=== PATIENT | female | born 1945 | race Caucasian/White ===

== ENCOUNTER 2024-05-09 13:16 | Emergency (ER) | payer MEDICARE, SELFPAY ==
--- NOTE | ~2024-05-09 | XR_ITS ---
EXAMINATION: XR chest 2V DATE: 05/09/2024 15:44 INDICATION: Fall. Left arm pain. Limited range of motion. TECHNIQUE: Frontal and lateral views of the chest were obtained. COMPARISON: None. FINDINGS: A calcified right lung nodule and calcified right hilar lymph nodes are consistent with old granulomatous disease. No pleural effusion or pneumothorax. The heart size is normal. There is a com minuted fracture of proximal left humerus. IMPRESSION: 1. No acute cardiopulmonary disease. 2. Comminuted fracture of proximal left humerus. Reviewed, dictated and finalized at location A.
--- NOTE | ~2024-05-09 | XR_ITS ---
EXAMINATION: XR_RIBSBI_CR DATE: 05/09/2024 15:44 INDICATION: Fall. TECHNIQUE: 2 views of the right ribs on 3 radiographs and 2 views of the left ribs on 3 radiographs w ere obtained. COMPARISON: None. FINDINGS: A calcified right lung nodule and calcified right hilar lymph nodes are consistent with old granulomatous disease. No pleural effusion or pneumothorax. The heart size is normal. There is no ri b fracture. There is a comminuted fracture of the proximal left humerus involving the surgical neck a nd greater tuberosity. At the surgical neck, the distal fracture fragment demonstrates impaction, 4 m m medial displacement, and 13 degrees lateral angulation. IMPRESSION: 1. Comminuted fracture of proximal left humerus. 2. No rib fracture. Reviewed, dictated and finalized at location A.
--- NOTE | ~2024-05-09 | CT_ITS ---
EXAMINATION: CT brain wo con DATE: 05/09/2024 15:16 INDICATION: Fall with head injury TECHNIQUE: Computed tomography (CT) of the head was performed without intravenous contrast. Sagittal and coronal reconstructions were performed. Automated exposure control and iterative reconstruction t echnique were employed. The dose-length product was 605.33 mGy-cm. COMPARISON: head CT dated 01/03/2013 FINDINGS: No fracture. No acute intracranial hemorrhage, acute infarction or abnormal extra axial fluid collect ion. There is mild scattered white matter hypoattenuation consistent with chronic small vessel ischem ic disease. Ventricles are normal and symmetric. Symmetric prominence of the sulci consistent with m ild age-appropriate diffuse cerebral volume loss. No mass/mass effect. Changes of bilateral intraocu lar lens replacement. The orbits, paranasal sinuses and mastoid air cells are normal. IMPRESSION: 1. No fracture or acute intracranial process. 2. Stable appearance of age-related changes including mild diffuse on loss and mild scattered white m atter hypoattenuation consistent with chronic small vessel ischemic disease. Reviewed, dictated and finalized at location B. IMPRESSION: 1. No fracture or acute intracranial process. 2. Stable appearance of age-related changes including mild diffuse on loss and mild scattered white matter hypoattenuation consistent with chronic small vesse l ischemic disease.
--- NOTE | ~2024-05-09 | XR_ITS ---
EXAMINATION: XR shoulder LT min 2V, XR humerus LT DATE: 05/09/2024 13:56 INDICATION: Left arm pain and limited range of motion post fall TECHNIQUE: 1. AP internally and externally rotated, AP oblique externally rotated and transscapular Y views of t he left shoulder were obtained. 2. Internally and externally rotated views of the left humerus were obtained. COMPARISON: None FINDINGS: Comminuted fractures of the proximal left humerus which includes a minimally fracture at the surgical neck with mild posterior impaction and angulation and a minimally displaced fracture across the base of the greater tuberosity. No other fractures identified. Humeral head remains normally centered ove r the glenoid. Mild humeral osteoarthritis with mild nonuniform joint space narrowing and small kusum nal osteophytes along the posterior glenoid. There is also mild left chronic clavicular osteoarthriti s. Visualized portions of the left lung are clear. IMPRESSION: Limited 1 part fracture the proximal left humerus including minimally displaced fracture across the s urgical neck and base of the greater tuberosity. Reviewed, dictated and finalized at location B. IMPRESSION: Limited 1 part fracture the proximal left humerus including minimally displaced fracture across the surgical neck and base of the greater tuberosity.
[2024-05-09 13:36] VITALS: BP 124/76; PULSE 97; RESP 16; TEMP 36.4; O2SAT 18
--- NOTE | 2024-05-09 15:01 | ED.GENADULT ---
HPI - General Adult General Chief complaint: Extremity Injury, Upper <Jennifer Weaver March, NAILER OPERATOR - Last Filed: 05/09/24 15:04> Stated complaint: glf, left shoulder pain <Jennifer Weaver March, NAILER OPERATOR - Last Filed: 05/09/24 15:04> Time Seen by Provider: 05/09/24 15:01 <Jennifer Weaver March, NAILER OPERATOR - Last Filed: 05/09/24 15:04> Focused HPI: Nohelia Messina is a 78 y/o female who had a mechanical fall today and fell onto her left shoulder / left arm. She did hit her head/ no LOC she takes ASA daily. No cervical pain tenderness/ no SOB GENERAL: Well-appearing, well-nourished, and in no acute distress. HEAD: Normocephalic, atraumatic. CHEST: Clear to auscultation. ?No respiratory distress. HEART: Regular rate and rhythm.? NEURO: ?Alert and oriented x3. unable to move left arm on her own, distal pulses intact Patient screened in triage and initial orders placed.? ?Additional care and disposition to be based upon?diagnostic testing and treatment. <Jennifer Weaver March, NAILER OPERATOR - Last Filed: 05/09/24 15:04> Related Data Allergies/adverse reactions: Allergies Allergy/AdvReac Type Severity Reaction Status Date / Time No Known Allergies Allergy Verified 05/09/24 13:38 <Jennifer Weaver March, NAILER OPERATOR - Last Filed: 05/09/24 15:04> Review of Systems Review of Systems: All systems are reviewed and are negative unless stated otherwise in the HPI. <Rosana Silvestre MD - Last Filed: 05/09/24 17:07> Exam Narrative: General: Alert, awake, afebrile, in no acute distress. HEENT: PERRL, no rhinorrhea, no post nasal drip, oropharynx clear, no midline tenderness to palpation over the cervical spine, no raccoon eyes, no sanchez sign. Cardiovascular: Regular rate and rhythm, no murmurs, rubs or gallops, no peripheral edema. Respiratory: Clear to auscultation bilaterally, no tachypnea, no wheezing, no rhonchi, no rubs, no respiratory distress. Abdomen: Soft, nontender, nondistended, no rebound, no guarding, no peritoneal signs. Musculoskeletal: Left upper extremity held in add adduction and flexion at the elbow joint, intact range of motion at the left wrist and elbow joint, limited range of motion at the left shoulder joint due to pain, intact brachial, radial and ulnar pulses in the left upper extremity, intact sensation over the deltoid, patient appears to be neurovascularly intact. Skin: No rashes or petechia, no signs of infection. Neurological: Alert and oriented to person, place, and time. Follows all commands. No focal deficits, speech is clear and fluent. <Rosana Silvestre MD - Last Filed: 05/09/24 17:07> Course Vital Signs Vital signs: Vital Signs Temperature 97.6 F 05/09/24 13:36 Pulse Rate 97 05/09/24 13:36 Respiratory Rate 16 05/09/24 13:36 Blood Pressure 124/76 05/09/24 13:36 Pulse Oximetry 18 L 05/09/24 13:36 Temperature 97.6 F 05/09/24 13:36 Pulse Rate 97 05/09/24 13:36 Respiratory Rate 16 05/09/24 13:36 Blood Pressure 124/76 05/09/24 13:36 Pulse Oximetry 18 L 05/09/24 13:36 <Jennifer Aviles APRN - Last Filed: 05/09/24 15:04> Vital Signs Temperature 97.6 F 05/09/24 13:36 Pulse Rate 97 05/09/24 13:36 Respiratory Rate 16 05/09/24 13:36 Blood Pressure 124/76 05/09/24 13:36 Pulse Oximetry 18 L 05/09/24 13:36 Temperature 97.6 F 05/09/24 13:36 Pulse Rate 97 05/09/24 13:36 Respiratory Rate 16 05/09/24 13:36 Blood Pressure 124/76 05/09/24 13:36 Pulse Oximetry 18 L 05/09/24 13:36 <Rosana Silvestre MD - Last Filed: 05/09/24 17:07> Medical Decision Making MDM Narrative Medical decision making narrative: The patient was evaluated by myself in the emergency department. History is obtained from patient who is an independent historian and physical exam was performed. External medical records were reviewed at this time. Imaging studies obtained included a CT brain without IV contrast, x-rays of the bilateral ribs, chest and left humerus which w
[2024-05-09] MEDS: HYDROcodone/acetaminophen (*CRX) 7.5-325 MG TABLET 1 TAB PO (16:47)
== END 2024-05-09 17:18 | disposition home or self-care (01) ==
PROVIDERS: Emergency Provider Emergency Medicine
DX: S42.302A Unspecified fracture of shaft of humerus, left arm, initial encounter for closed fracture (principal); S09.90XA Unspecified injury of head, initial encounter; W19.XXXA Unspecified fall, initial encounter
CPT/HCPCS: 70450; 71046; 71110; 73030; 73060; 99284; A4565; A9270

== ENCOUNTER 2024-09-21 13:06 | Outpatient (CLI) | payer MEDICARE, SELFPAY ==
--- NOTE | ~2024-09-21 | DEXA_ITS ---
Bone Density Report Name: BHANU DAS Age: 78 Sex: Female Ethnicity: White Date of : 1945 Indication: postmenopausal; screening for osteoporosis; height loss; prior fracture; Referring Provider: JEAN-PIERRE, KANE Dumont Study: Bone densitometry was performed. Exam Date: September 21, 2024 Accession number: [id number] Bone Density: Region BMD T-score Z-score Classification AP Spine(L1, L2, L3) 0.697 -2.9 -0.4 Osteoporosis Femoral Neck (Left) 0.529 -2.9 -0.7 Osteoporosis Total Hip (Left) 0.638 -2.5 -0.6 Osteoporosis Femoral Neck (Right) 0.511 -3.0 -0.8 Osteoporosis Total Hip (Right) 0.577 -3.0 -1.1 Osteoporosis Femoral Neck Mean 0.520 -3.0 -0.8 Osteoporosis Total Hip Mean 0.608 -2.7 -0.8 Osteoporosis World Health Organization criteria for BMD impression classify patients as: Normal (T-score at or above -1.0), Osteopenia (T-score between -1.0 and -2.5), or Osteoporosis (T-score at or below -2.5). 10-year Fracture Risk: FRAX not reported because: Some T-score for Spine Total or Hip Total or Femoral Neck at or below -2.5 Clinical Information Provided by Patient: Has had a low trauma fracture Has used the following medications: Vitamin D, multi Patient maximum height was 63 Menopause Age: 51 No regular weight bearing exercise Does not regularly consume dairy products Drinks caffeinated beverages Onset of menses at age 16 Number of children 3 Impression: The patient has established osteoporosis, based on the Right Total Hip T-score and the existence of a prior fracture. The patient has risk factors, including: previous fracture. Discussion: HIGH RISK OF FRACTURE. BONE DENSITY IS UNDESIRABLY LOW AT ONE OR MORE SKELETAL SITES, CONSISTENT WITH POSTMENOPAUSAL OSTEOPOROSIS. This patient's lowest T-score, in a patient who has previously fractured, meets the World Health Organization's (WHO) criteria for severe osteoporosis. In untreated patients, the risk of osteoporotic fracture increases approximately two-fold for each 1.0 SD decrease in T-score. Low bone density is not the only risk factor for fracture; also consider factors such as patient's age, frailty or poor health, risk of falling, risk of injury, previous osteoporotic fracture, family history of osteoporosis, cigarette smoking, low body weight, etc. Not everyone with low bone mineral density has osteoporosis; osteomalacia and other metabolic bone disorders should also be considered. Patients who have osteoporosis should be evaluated for specific diseases and conditions (secondary causes) that may cause or contribute to bone loss. The [place] [employer]ocr[employer] (AACE) and National Osteoporosis Foundation (NOF) recommend pharmacologic intervention for all postmenopausal women whose T-score is in this range. The patient should follow a healthful lifestyle (good nutrition with adequate calcium and vitamin D, and appropriate weight-bearing exercise). Follow-Up: Consider a repeat BMD and Vertebral Fracture Assessment (VFA) exam in 2 years or sooner if medically necessary, to reassess this patient's status. Reported by: LORI on 09/21/2024 1:34:00 PM. Reviewed, dictated and finalized at location A.
== END 2024-09-21 13:07 | disposition home or self-care (01) ==
LOC: CHSIMG 13:09
PROVIDERS: PCP Nurse Practitioner Family; Visit Provider Nurse Practitioner Family
DX: Z78.0 Asymptomatic menopausal state (principal); M81.0 Age-related osteoporosis without current pathological fracture
CPT/HCPCS: 77080

== ENCOUNTER 2024-10-01 11:59 | Emergency (ER) | payer MEDICARE, SELFPAY ==
--- NOTE | ~2024-10-01 | CT_ITS ---
CT brain wo con Ordering provider: Kashif Tejada III DO History: 78 years Female with . gait changes. dizziness . Comparison: None. Technique: CT of the head without contrast. Radiation reduction technique utilized.The dose-length pr oduct was 605.33 mGy-cm. FINDINGS: BRAIN PARENCHYMA AND CSF SPACES: Mild leukoaraiosis and diffuse cortical atrophy. Mild atheromatous d isease. No midline shift, mass effect or hemorrhage. The brain parenchyma and CSF spaces are otherwi se normal. VISUALIZED PARANASAL SINUSES: Well aerated. MASTOIDS: Well aerated. BONES: The bones appear intact. SOFT TISSUES: Visualized nasopharynx is normal. Superficial soft tissues are normal. IMPRESSION: No acute intracranial findings. Reviewed, dictated and finalized at location A. WORKER
--- NOTE | ~2024-10-01 | CT_ITS ---
EXAMINATION: CTA BRAIN/CAROTID DATE: 10/01/2024 14:55 INDICATION: Dizziness. Weakness. Altered balance. TECHNIQUE: Computed tomographic angiography (CTA) of the head and neck was performed with 100 mL Omni paque-350 intravenous contrast. Multiplanar reconstructions and maximum intensity projection 3D-recon structions of the carotid arteries and of the intracranial arteries were created by the technologist on a separate workstation. Automated exposure control and iterative reconstruction technique were emp loyed.The dose-length product was 849.51 mGy-cm. COMPARISON: None. FINDINGS: Carotid arteries: Visualized portion of the aortic arch is normal in caliber with minimal atherosclerotic plaque withou t dissection. There is prominent atherosclerotic plaque at the origin of the left subclavian artery w ith 60% stenosis. There is 60% stenosis of the right carotid bulb relative to normal distal artery brian men diameter (NASCET criteria). There is 40% stenosis of the left carotid bulb relative to normal dis neville artery lumen diameter. The left vertebral artery is mildly dominant. There is no mammographic sig nificant stenosis along the extracranial portion of the bilateral vertebral arteries. Calcified right upper lobe nodule consistent with old granulomatous disease. Severe cervical spondylosis. Intracranial arteries Left vertebral artery is dominant. There is a 60% stenosis of the distalmost portion of the right int racranial vertebral artery. Small amount of atherosclerotic plaque without hematoma significant steno sis at the proximal basilar artery. There is also a atherosclerotic plaque at the bilateral carotid s iphons without hemodynamically significant stenosis on the right with 60% stenosis on the left. There are no aneurysms identified. Both A1 and P1 segments are patent. There or also patent anterior comm unicating and right posterior communicating arteries. Cerebral arterial arborization appears symmetri c. IMPRESSION: 1. 60% stenosis of the right carotid bulb relative to normal distal artery lumen diameter (NASCET cri teria). 2. 40% stenosis of the left carotid bulb relative to normal distal artery lumen diameter. 3. Intracranial atherosclerosis with 60% stenosis of the distalmost right intracranial vertebral muna ry and at the left carotid siphon. Reviewed, dictated and finalized at location A. BRA TUTOR IMPRESSION: 1. 60% stenosis of the right carotid bulb relative to normal distal artery lume n diameter (NASCET criteria). 2. 40% stenosis of the left carotid bulb relative to normal distal artery lumen diameter. 3. Intracranial atherosclerosis with 60% stenosis of the distalmost right intra cranial vertebral artery and at the left carotid siphon.
[2024-10-01 12:06] VITALS: BP 185/85; PULSE 85; RESP 16; TEMP 36.9; O2SAT 98
--- NOTE | 2024-10-01 14:10 | ED.DIZZY ---
HPI - Dizziness General Chief Complaint: Dizziness <EFFIE Cabrera Last Filed: 10/01/24 14:16> Stated Complaint: dizziness, off balance <EFFIE Cabrera Last Filed: 10/01/24 14:16> Time Seen by Provider: 10/01/24 14:11 <EFFIE Cabrera Last Filed: 10/01/24 14:16> Focused HPI: Patient is a 78 y/o female who presents to the ED with c/o Dizziness. Patient reports she has been feeling increasingly weak all over her since yesterday. Denies focal weakness or numbness. States weakness was worse today which prompted her presentation. States she has been feeling off balance and is afraid she is going to fall. Has been feeling dizzy with movements, described as though the room is spinning. Reports history of remote vertigo, but states this does not feel similar. Denies vision changes, syncope, head injury, pain, fevers. GENERAL: Elderly but well-appearing, slightly thin, and in no acute distress. HEAD: Normocephalic, atraumatic. CHEST: Clear to auscultation. ?No respiratory distress. HEART: Regular rate and rhythm.? NEURO: ?Alert and oriented x3. Equal casualty claim adjuster strength bilaterally. No focal deficits. Strength 5/5 in upper and lower extremities bilaterally. No pronator drift. Patient screened in triage and initial orders placed.? ?Additional care and disposition to be based upon?diagnostic testing and treatment. <EFFIE Cabrera Last Filed: 10/01/24 14:16> Source: patient <EFFIE Cabrera Last Filed: 10/01/24 14:16> Mode of arrival: wheelchair <EFFIE Cabrera Last Filed: 10/01/24 14:16> Limitations: no limitations <EFFIE Cabrera Last Filed: 10/01/24 14:16> Related Data Home Medications: Home Medications Medication Instructions Recorded Confirmed Blood pressure medication BYMOUTH 05/15/24 08/08/24 levothyroxine 75 mcg capsule 75 mcg PO DAILY 05/15/24 08/08/24 simvastatin 20 mg tablet 20 mg PO DAILY 05/15/24 08/08/24 <Deisi Hensley PA-C - Last Filed: 10/01/24 14:16> Allergies/Adverse Reactions: Allergies Allergy/AdvReac Type Severity Reaction Status Date / Time No Known Allergies Allergy Verified 10/01/24 18:10 <Deisi Hensley PA-C - Last Filed: 10/01/24 14:16> Review of Systems Review of Systems: All systems are reviewed and are negative unless stated otherwise in the HPI. <Rosana Silvestre MD - Last Filed: 10/01/24 22:10> PMFSH Past Medical History Medical History: Medical History Closed fracture of left proximal humerus <Deisi Hensley PA-C - Last Filed: 10/01/24 14:16> Family History Family History: Family History Unknown Hypertension <Deisi Hensley PA-C - Last Filed: 10/01/24 14:16> Social History Social History: Social History Social History: caffeine use Smoking status: Former smoker Tobacco type: cigarettes Alcohol intake: never Occupation/Education: retired Gender identity (if verbalized by the patient): Female <Deisi Hensley PA-C - Last Filed: 10/01/24 14:16> Exam Narrative: General: Alert, awake, afebrile, in no acute distress. HEENT: PERRL, no rhinorrhea, no post nasal drip, oropharynx clear. Neck: Trachea midline, no JVD, no lymphadenopathy. Cardiovascular: Regular rate and rhythm, no murmurs, rubs or gallops, no peripheral edema. Respiratory: Clear to auscultation bilaterally, no tachypnea, no wheezing, no rhonchi, no rubs, no respiratory distress. Abdomen: Soft, nontender, nondistended, no rebound, no guarding, no peritoneal signs. Musculoskeletal: No joint swelling or deformity, normal muscle tone. Skin: No rashes or petechia, no signs of infection. Psychiatric: Alert and oriented, normal behavior and judgment for situation. Neurological: Alert and oriented to person, place, and time. Follows all commands. 5/5 motor strength in the bilateral upper and lower extremity, sensation intact and equal in the bilateral upper and lower extremity, cranial nerves 2-12 grossly intact, no focal deficits, speech is clear and fluent, NIH 0. <Rosana Silvestre MD - Last Filed: 10/01/24 22:10> Course Vital Signs Vital signs: Vital Signs Temperature 98.4 F 10/01/24 12:06 Pulse Rate 85 10/01/24 12:06 Respiratory Rate 16 10/01/24 12:06 Blood Pressure 185/85 H 10/01/24 12:06 Pulse Oximetry 98 10/01/24 12:06 Temperature 98 F 10/01/24 20:46 Pulse Rate 72 10/01/24 20:46 Respiratory Rate 12 10/01/24 20:46 Blood Pressure 164/91 H 10/01/24 20:46 Pulse Oximetry 97 10/01/24 20:46 <Deisi Hensley PA-C - Last Filed: 10/01/24 14:16> Vital Signs Temperature 98.4 F 10/01/24 12:06 Pulse Rate 85 10/01/24 12:06 Respiratory Rate 16 10/01/24 12:06 Blood Pressure 185/85 H 10/01/24 12:06 Pulse Oximetry 98 10/01/24 12:06 Temperature 98 F 10/01/24 20:46 Pulse Rate 72 10/01/24 20:46 Respiratory Rate 12 10/01/24 20:46 Blood Pressure 164/91 H 10/01/24 20:46 Pulse Oximetry 97 10/01/24 20:46 <Rosana Silvestre MD - Last Filed: 10/01/24 22:10> MDM - Dizziness MDM Narrative Medical decision making narrative: MSE by RIC in triage. <Deisi Hensley PA-C - Last Filed: 10/01/24 14:16> MSE by RIC in triage. The patient was evaluated by myself in the emergency department. History is obtained from patient who is an independent historian along with family members present at bedside and physical exam was performed. External medical records were reviewed at this time. IV was established and pertinent tests were ordered. Patient was administered 20 mg of IV labetalol due to a blood pressure of 195/89 mmHg. Repeat BP 157/81 mmHg. EKG was obtained which revealed sinus rhythm rate of 71 beats per minute. No ST changes, T wave inversions or evidence of acute ischemia. EKG was independently interpreted by me and is currently pending official cardiology read. Laboratory results obtained revealing no acute process. Imaging studies obtained included CT brain without IV contrast and CT angiogram of the head and neck which was independently interpreted by me revealin. 60% stenosis of the right carotid bulb relative to normal distal artery lumen diameter (NASCET criteria). 2. 40% stenosis of the left carotid bulb relative to normal distal artery lumen diameter. 3. Intracranial atherosclerosis with 60% stenosis of the distalmost right intracranial vertebral artery and at the left carotid siphon. Case was discussed with the on-call neuro interventionalist at [facility] Dr. Reyna at 2018 who recommended outpatient follow-up as the patient does not present with symptoms concerning of an acute stroke. He also recommended switching the patient's simvastatin to atorvastatin 40 mg daily and a baby aspirin daily. Differential diagnosis considerations include TIA, hypertensive urgency versus emergency, vertebrobasilar insufficiency, peripheral vertigo. Comorbidities impacting this visit include history of hypertension and hypercholesterolemia. I have evaluated and discussed social determinants of health with the patient that could potentially impact subsequent diagnosis and treatment plans. On repeat assessment of the patient, reevaluation revealed that the patient is doing well and is in no acute distress. Patient symptoms have improved since she arrived to our emergency department. Repeat vital signs were all reviewed and noted to be stable. Differential diagnosis and treatment plan were discussed with the patient at bedside. Patient agrees with discussion and after shared medical decision making agrees with discharge. All questions were answered to the patient's satisfaction. Patient will follow up with the [facility] neurology clinic in 3-5 days. patient's statin was switched to atorvastatin 40 mg daily. Patient was instructed to continue taking her baby aspirin daily. Patient was provided with strict return precautions and instructed to return to the emergency department if any new or worsening symptoms develop. The patient was discharged in stable condition. <Rosana Silvestre MD - Last Filed: 10/01/24 22:10> Lab Data Result diagrams: 10/01/24 14:10 10/01/24 14:45 <Deisi Hensley PA-C - Last Filed: 10/01/24 14:16> Labs: Lab Results 10/01/24 10/01/24 10/01/24 Range/Units 14:10 14:17 14:18 WBC 7.6 (4.5-10.0) K/mm3 RBC 4.98 (4.2-5.4) M/mm3 Hgb 15.1 H (12.0-15.0) g/dL Hct 46.4 (37.0-47.0) % MCV 93.2 (80-100) fl MCH 30.3 (26-34) pg MCHC 32.5 (32-36) g/dl RDW 13.1 (11.5-14.5) % Plt Count 207 (150-375) k/mm3 MPV 10.6 H (7.4-10.4) fl Immature Gran % (Auto) 0.3 (0-0.5) % Neut % (Auto) 80.0 H (45.5-73.1) % Lymph % (Auto) 15.5 L (18.3-44.2) % [place] % (Auto) 3.6 (2.6-8.5) % Eos % (Auto) 0.1 (0-4.4) % Baso % (Auto) 0.5 (0.2-1.2) % Lymph # (Auto) 1.18 (0.9-3.2) K/mm3 [place] # (Auto) 0.3 (0.1-0.6) K/mm3 Eos # (Auto) 0.0 (0-0.3) K/mm3 Baso # (Auto) 0.0 (0.0-0.1) K/mm3 Abs Immat Gran (auto) 0.02 (0.00-0.031) K/mm3 Absolute Neuts (auto) 6.1 (1.3-6.7) K/mm3 Absolute Nucleated RBC 0.000 (0.0-0.012) K/mm3 Nucleated RBC % 0.0 (0.0-0.2) % PT 13.0 (11.1-14.7) Seconds INR 1.0 APTT 23.9 (22.3-36.8) Seconds Sodium 140 (137-145) mmol/L Potassium 4.1 (3.4-5.0) mmol/L Chloride 105 (98-107) mmol/L Carbon Dioxide 29 (22-30) mmol/L Anion Gap 6 (4-12) mmol/L BUN 11 (7-17) mg/dL Creatinine 0.60 L (0.7-1.0) mg/dL Estim Creat Clear Calc 50 ml/min Estimated GFR > 60 (59 - ) Glucose 96 (65-110) mg/dL Calcium 9.5 (8.4-10.2) mg/dL Magnesium 2.3 (1.6-2.3) mg/dL Total Bilirubin 0.9 (0.2-1.3) mg/dL AST 37 H (14-36) U/L ALT 16 (6-35) U/L Alkaline Phosphatase 98 (38-126) U/L Total Protein 8.0 (6.3-8.2) g/dL Albumin 4.7 (3.5-5.1) g/dL Urine Color (Yellow) Urine Appearance (Clear) Urine pH (5.0-9.0) Ur Specific [place] (1.001-1.035) Urine Protein (Negative) mg/dL Urine Glucose (UA) (Negative) mg/dL Urine Ketones (Negative) mg/dL Ur Blood (Man) (Negative) Urine Nitrate (Negative) Urine Bilirubin (Negative) Urine Urobilinogen (<2.0) mg/dL Leukocyte Esterase Rfl (Negative) JORGITO/UL Urine RBC (0-2) /hpf Urine WBC (0-3) /hpf Ur Squamous Epith Cells (Few) /hpf Urine Bacteria /hpf Urine Casts 10/01/24 10/01/24 Range/Units 14:45 18:46 WBC (4.5-10.0) K/mm3 RBC (4.2-5.4) M/mm3 Hgb (12.0-15.0) g/dL Hct (37.0-47.0) % MCV (80-100) fl MCH (26-34) pg MCHC (32-36) g/dl RDW (11.5-14.5) % Plt Count (150-375) k/mm3 MPV (7.4-10.4) fl Immature Gran % (Auto) (0-0.5) % Neut % (Auto) (45.5-73.1) % Lymph % (Auto) (18.3-44.2) % [place] % (Auto) (2.6-8.5) % Eos % (Auto) (0-4.4) % Baso % (Auto) (0.2-1.2) % Lymph # (Auto) (0.9-3.2) K/mm3 [place] # (Auto) (0.1-0.6) K/mm3 Eos # (Auto) (0-0.3) K/mm3 Baso # (Auto) (0.0-0.1) K/mm3 Abs Immat Gran (auto) (0.00-0.031) K/mm3 Absolute Neuts (auto) (1.3-6.7) K/mm3 Absolute Nucleated RBC (0.0-0.012) K/mm3 Nucleated RBC % (0.0-0.2) % PT (11.1-14.7) Seconds INR APTT (22.3-36.8) Seconds Sodium (137-145) mmol/L Potassium (3.4-5.0) mmol/L Chloride (98-107) mmol/L Carbon Dioxide (22-30) mmol/L Anion Gap (4-12) mmol/L BUN (7-17) mg/dL Creatinine 0.70 (0.7-1.0) mg/dL Estim Creat Clear Calc 44 ml/min Estimated GFR > 60 (59 - ) Glucose (65-110) mg/dL Calcium (8.4-10.2) mg/dL Magnesium (1.6-2.3) mg/dL Total Bilirubin (0.2-1.3) mg/dL AST (14-36) U/L ALT (6-35) U/L Alkaline Phosphatase (38-126) U/L Total Protein (6.3-8.2) g/dL Albumin (3.5-5.1) g/dL Urine Color Yellow (Yellow) Urine Appearance Clear (Clear) Urine pH 6.5 (5.0-9.0) Ur Specific [place] > 1.045 H (1.001-1.035) Urine Protein Negative (Negative) mg/dL Urine Glucose (UA) Negative (Negative) mg/dL Urine Ketones 1+ H (Negative) mg/dL Ur Blood (Man) Trace (Negative) Urine Nitrate Negative (Negative) Urine Bilirubin Negative (Negative) Urine Urobilinogen 0.2 (<2.0) mg/dL Leukocyte Esterase Rfl Negative (Negative) JORGITO/UL Urine RBC 3-5 H (0-2) /hpf Urine WBC 6-10 H (0-3) /hpf Ur Squamous Epith Cells None seen (Few) /hpf Urine Bacteria None seen /hpf Urine Casts 0-2 <Deisi Hensley PA-C - Last Filed: 10/01/24 14:16> Lab Results 10/01/24 10/01/24 10/01/24 Range/Units 14:10 14:17 14:18 WBC 7.6 (4.5-10.0) K/mm3 RBC 4.98 (4.2-5.4) M/mm3 Hgb 15.1 H (12.0-15.0) g/dL Hct 46.4 (37.0-47.0) % MCV 93.2 (80-100) fl MCH 30.3 (26-34) pg MCHC 32.5 (32-36) g/dl RDW 13.1 (11.5-14.5) % Plt Count 207 (150-375) k/mm3 MPV 10.6 H (7.4-10.4) fl Immature Gran % (Auto) 0.3 (0-0.5) % Neut % (Auto) 80.0 H (45.5-73.1) % Lymph % (Auto) 15.5 L (18.3-44.2) % [place] % (Auto) 3.6 (2.6-8.5) % Eos % (Auto) 0.1 (0-4.4) % Baso % (Auto) 0.5 (0.2-1.2) % Lymph # (Auto) 1.18 (0.9-3.2) K/mm3 [place] # (Auto) 0.3 (0.1-0.6) K/mm3 Eos # (Auto) 0.0 (0-0.3) K/mm3 Baso # (Auto) 0.0 (0.0-0.1) K/mm3 Abs Immat Gran (auto) 0.02 (0.00-0.031) K/mm3 Absolute Neuts (auto) 6.1 (1.3-6.7) K/mm3 Absolute Nucleated RBC 0.000 (0.0-0.012) K/mm3 Nucleated RBC % 0.0 (0.0-0.2) % PT 13.0 (11.1-14.7) Seconds INR 1.0 APTT 23.9 (22.3-36.8) Seconds Sodium 140 (137-145) mmol/L Potassium 4.1 (3.4-5.0) mmol/L Chloride 105 (98-107) mmol/L Carbon Dioxide 29 (22-30) mmol/L Anion Gap 6 (4-12) mmol/L BUN 11 (7-17) mg/dL Creatinine 0.60 L (0.7-1.0) mg/dL Estim Creat Clear Calc 50 ml/min Estimated GFR > 60 (59 - ) Glucose 96 (65-110) mg/dL Calcium 9.5 (8.4-10.2) mg/dL Magnesium 2.3 (1.6-2.3) mg/dL Total Bilirubin 0.9 (0.2-1.3) mg/dL AST 37 H (14-36) U/L ALT 16 (6-35) U/L Alkaline Phosphatase 98 (38-126) U/L Total Protein 8.0 (6.3-8.2) g/dL Albumin 4.7 (3.5-5.1) g/dL Urine Color (Yellow) Urine Appearance (Clear) Urine pH (5.0-9.0) Ur Specific [place] (1.001-1.035) Urine Protein (Negative) mg/dL Urine Glucose (UA) (Negative) mg/dL Urine Ketones (Negative) mg/dL Ur Blood (Man) (Negative) Urine Nitrate (Negative) Urine Bilirubin (Negative) Urine Urobilinogen (<2.0) mg/dL Leukocyte Esterase Rfl (Negative) JORGITO/UL Urine RBC (0-2) /hpf Urine WBC (0-3) /hpf Ur Squamous Epith Cells (Few) /hpf Urine Bacteria /hpf Urine Casts 10/01/24 10/01/24 Range/Units 14:45 18:46 WBC (4.5-10.0) K/mm3 RBC (4.2-5.4) M/mm3 Hgb (12.0-15.0) g/dL Hct (37.0-47.0) % MCV (80-100) fl MCH (26-34) pg MCHC (32-36) g/dl RDW (11.5-14.5) % Plt Count (150-375) k/mm3 MPV (7.4-10.4) fl Immature Gran % (Auto) (0-0.5) % Neut % (Auto) (45.5-73.1) % Lymph % (Auto) (18.3-44.2) % [place] % (Auto) (2.6-8.5) % Eos % (Auto) (0-4.4) % Baso % (Auto) (0.2-1.2) % Lymph # (Auto) (0.9-3.2) K/mm3 [place] # (Auto) (0.1-0.6) K/mm3 Eos # (Auto) (0-0.3) K/mm3 Baso # (Auto) (0.0-0.1) K/mm3 Abs Immat Gran (auto) (0.00-0.031) K/mm3 Absolute Neuts (auto) (1.3-6.7) K/mm3 Absolute Nucleated RBC (0.0-0.012) K/mm3 Nucleated RBC % (0.0-0.2) % PT (11.1-14.7) Seconds INR APTT (22.3-36.8) Seconds Sodium (137-145) mmol/L Potassium (3.4-5.0) mmol/L Chloride (98-107) mmol/L Carbon Dioxide (22-30) mmol/L Anion Gap (4-12) mmol/L BUN (7-17) mg/dL Creatinine 0.70 (0.7-1.0) mg/dL Estim Creat Clear Calc 44 ml/min Estimated GFR > 60 (59 - ) Glucose (65-110) mg/dL Calcium (8.4-10.2) mg/dL Magnesium (1.6-2.3) mg/dL Total Bilirubin (0.2-1.3) mg/dL AST (14-36) U/L ALT (6-35) U/L Alkaline Phosphatase (38-126) U/L Total Protein (6.3-8.2) g/dL Albumin (3.5-5.1) g/dL Urine Color Yellow (Yellow) Urine Appearance Clear (Clear) Urine pH 6.5 (5.0-9.0) Ur Specific [place] > 1.045 H (1.001-1.035) Urine Protein Negative (Negative) mg/dL Urine Glucose (UA) Negative (Negative) mg/dL Urine Ketones 1+ H (Negative) mg/dL Ur Blood (Man) Trace (Negative) Urine Nitrate Negative (Negative) Urine Bilirubin Negative (Negative) Urine Urobilinogen 0.2 (<2.0) mg/dL Leukocyte Esterase Rfl Negative (Negative) JORGITO/UL Urine RBC 3-5 H (0-2) /hpf Urine WBC 6-10 H (0-3) /hpf Ur Squamous Epith Cells None seen (Few) /hpf Urine Bacteria None seen /hpf Urine Casts 0-2 <Rosana Silvestre MD - Last Filed: 10/01/24 22:10> Discharge Plan Discharge Clinical Impression: Benign paroxysmal positional vertigo, Vertebral basilar insufficiency, Hypertension, Carotid artery stenosis <Deisi Hensley PA-C - Last Filed: 10/01/24 14:16> Patient Disposition: Home, Self-Care <Deisi Hensley PA-C - Last Filed: 10/01/24 14:16> Condition: Improved <Deisi Hensley PA-C - Last Filed: 10/01/24 14:16> Instructions: Antibiotic Form, Chronic Hypertension (ED), Dizziness (ED) <Deisi Hensley PA-C - Last Filed: 10/01/24 14:16> Additional Instructions: Please follow-up with the neurology/ stroke clinic at [facility], call [phone] tomorrow to set up follow-up appointment to be within the next 5-7 days. Return to the emergency department if any new or worsening symptoms develop. Your new atorvastatin script was sent to your pharmacy you will start taking it tomorrow in place of your simvastatin. You also instructed to take a baby aspirin daily 81 mg. <Deisi Hensley PA-C - Last Filed: 10/01/24 14:16> Prescriptions: New atorvastatin 40 mg tablet 40 mg PO DAILY Qty: 30 0RF No Action simvastatin 20 mg tablet 20 mg PO DAILY levothyroxine 75 mcg capsule 75 mcg PO DAILY Blood pressure medication BYMOUTH hydrocodone-acetaminophen 5-325 mg tablet 1 tablet PO Q8H PRN (Reason: pain) Qty: 20 0RF <Deisi Hensley PA-C - Last Filed: 10/01/24 14:16> Follow-up/Referrals: Drew,Sarika Dumont, [employer] [Primary Care Provider] - 1 Week <Deisi Hensley PA-C - Last Filed: 10/01/24 14:16> Time of Disposition: 20:45 <Deisi Hensley PA-C - Last Filed: 10/01/24 14:16> 20:45 <Rosana Silvestre MD - Last Filed: 10/01/24 22:10>
[2024-10-01 14:40] LABS: Basophils Percent Auto 0.5 % (0.2-1.2); Eosinophils Percent Auto 0.1 % (0-4.4); Hematocrit 46.4 % (37.0-47.0); Hemoglobin 15.1 g/dL (12.0-15.0); Immature Granulocyte Absolute 0.02 K/mm3 (0.00-0.031); Immature Granulocyte Percent A 0.3 % (0-0.5); Lymphocytes Absolute Auto 1.18 K/mm3 (0.9-3.2); Lymphocytes Percent Auto 15.5 % (18.3-44.2); Mean Corpuscular HGB Conc 32.5 g/dl (32-36); Mean Corpuscular Hemoglobin 30.3 pg (26-34); Mean Corpuscular Volume 93.2 fl (80-100); Mean Platelet Volume 10.6 fl (7.4-10.4); Monocytes Absolute Auto 0.3 K/mm3 (0.1-0.6); Monocytes Percent Auto 3.6 % (2.6-8.5); Neutrophils Absolute Auto 6.1 K/mm3 (1.3-6.7); Platelet Count Result 207 k/mm3 (150-375); Red Blood Count 4.98 M/mm3 (4.2-5.4); Red Cell Distribution Width 13.1 % (11.5-14.5); White Blood Count 7.6 K/mm3 (4.5-10.0)
[2024-10-01 14:47] LABS: Estimated CRCL calculation 44 ml/min; Estimated Glomerular Filt Rate > 60
[2024-10-01 15:00] LABS: Partial Thromboplastin Time 23.9 Seconds (22.3-36.8)
[2024-10-01 16:33] LABS: Alanine Aminotransferase 16 U/L (6-35); Albumin Level 4.7 g/dL (3.5-5.1); Alkaline Phosphatase 98 U/L (38-126); Anion Gap 6 mmol/L (4-12); Aspartate Amino Transferase 37 U/L (14-36); Bilirubin,Total 0.9 mg/dL (0.2-1.3); Blood Urea Nitrogen 11 mg/dL (7-17); Calcium 9.5 mg/dL (8.4-10.2); Carbon Dioxide 29 mmol/L (22-30); Chloride 105 mmol/L (98-107); Estimated CRCL calculation 50 ml/min; Estimated Glomerular Filt Rate > 60; Glucose 96 mg/dL (65-110); Magnesium 2.3 mg/dL (1.6-2.3); Potassium 4.1 mmol/L (3.4-5.0); Sodium 140 mmol/L (137-145)
[2024-10-01] MEDS: MECLIZINE HCL 25 MG TABLET PO (18:04)
[2024-10-01] MEDS: SODIUM CHLORIDE 0.9% IV 1,000 ML 999 ML IV CONT (18:06)
[2024-10-01 18:10] VITALS: BP 201/74; PULSE 88; RESP 19; O2SAT 99
[2024-10-01 19:29] VITALS: BP 181/84; PULSE 94; RESP 14; TEMP 36.4; O2SAT 99
[2024-10-01 19:37] LABS: Add Urine Microscopic? YES; Appearance Urine Clear (Clear); Bacteria Urine None Seen /hpf; Bilirubin Urine Negative (Negative); Blood Urine Trace (Negative); Color Urine Yellow (Yellow); Glucose Urine UA Negative (Negative); Ketones Urine 1+ mg/dL (Negative); Leukocyte Esterase Ur Negative LEU/UL (Negative); Nitrate Urine Negative (Negative); Non Pathogenic Casts 0-2; Protein Urine Negative (Negative); Specific Grav Ur > 1.045 (1.001-1.035); Squamous Epithelial Cell Urine None Seen /hpf (Few); Urobilinogen Urine 0.2 mg/dL (<2.0); pH Urine 6.5 (5.0-9.0)
[2024-10-01] MEDS: LABETALOL HCL INJ 100 MG/20 ML VIAL 20 MG IV PUSH (20:38)
--- NOTE | 2024-10-01 20:41 | ECG_ITS ---
Test Date: 2024-10-01 20:50:34 Measurements Intervals [place] Rate: 71 P: 61 PA: 205 QRS: 5 QRSD: 82 T: 35 QT: 394 QTc: 431 Interpretive Statements SINUS RHYTHM WITH SINUS ARRHYTHMIA POSSIBLE LEFT ATRIAL ENLARGEMENT CANNOT R/O SEPTAL INFARCT, AGE INDETERMINATE BASELINE ARTIFACT- I, II, AVR, AVL, AVF, V1-V2 ABNORMAL ECG No previous ECG available for comparison Electronically Signed On 10-01-2024 20:58:11 ENERGY TRADER by Rashi Lazar D.O.
[2024-10-01 20:46] VITALS: BP 164/91; PULSE 72; RESP 12; TEMP 36.6; O2SAT 97
== END 2024-10-01 21:33 | disposition home or self-care (01) ==
PROVIDERS: Physician Assistant; Emergency Provider Emergency Medicine; PCP Nurse Practitioner Family
DX: H81.10 Benign paroxysmal vertigo, unspecified ear (principal); G45.0 Vertebro-basilar artery syndrome; I10 Essential (primary) hypertension; Z79.899 Other long term (current) drug therapy
CPT/HCPCS: 36415; 70450; 70496; 70498; 80053; 81001; 83735; 85025; 85610; 85730; 87086; 93005; 96361; 96374; 99284; A9270; J7030; Q9967